=== PATIENT | male | born 1990 | race Caucasian/White ===

== ENCOUNTER 2020-08-27 09:59 | Emergency (ER) | payer OTHER ==
[2020-08-27] MEDS ORDERED: IPRATROPIUM/ALBUTEROL 0.5-2.5 MG/3 ML AMPUL NEB ONE (10:13)
[2020-08-27] MEDS ORDERED: NORMAL SALINE 1000 ML 1,000 ML IV ONE (10:14)
--- NOTE | 2020-08-27 10:16 | ER Document Report ---
ED Medical Screen (RME) - General Chief Complaint: Cough Stated Complaint: COUGH Time Seen by Provider: 08/27/20 10:09 - HPI Notes: 08/27/20 10:14 30-year-old male presents to the emergency room today for evaluation of a cough that is getting progressively worse for the last week. Reports he was diagnosed with Covid a week ago, has tried [id number] Tylenol and ibuprofen for his fevers without for relief. Reports he does have chest pains with coughing, denies any shortness of breath, nausea, vomiting, diarrhea. Denies any history of asthma, non-smoker. Denies having a medical history. Does not have a primary care provider. I have greeted and performed a rapid initial assessment of this patient. A comprehensive ED assessment and evaluation of the patient, analysis of test results and completion of the medical decision making process will be conducted by additional ED providers. PHYSICAL EXAMINATION: GENERAL: Well-appearing, well-nourished and in no acute distress. HEAD: Atraumatic, normocephalic. EYES: Pupils equal round extraocular movements intact, conjunctiva are normal. NECK: Normal range of motion CV: s1, s2 tachycardia LUNGS: diminished breath sounds The patient was evaluated during a global COVID-19 pandemic and that diagnosis was suspected/considered upon their initial presentation. Their evaluation, treatment and testing was consistent with current guidelines for patients who present with complaints or symptoms and may be related to COVID-19. - Related Data Allergies/Adverse Reactions: No Known Allergies Allergy (Unverified 08/27/20 10:08) Past Medical History - Social History Chew tobacco use (# tins/day): No Frequency of alcohol use: None Drug Abuse: None Physical Exam - Vital signs Vitals: Temp Pulse Resp BP Pulse Ox 99.1 F 131 H 20 131/92 H 97 08/27/20 10:03 08/27/20 10:03 08/27/20 10:03 08/27/20 10:03 08/27/20 10:03 Course - Vital Signs Vital signs: Temp Pulse Resp BP Pulse Ox 99.1 F 131 H 20 131/92 H 97 08/27/20 10:03 08/27/20 10:03 08/27/20 10:03 08/27/20 10:03 08/27/20 10:03
--- NOTE | 2020-08-27 10:42 | RADIOLOGY REPORT (SQ) ---
EXAM DESCRIPTION: CHEST SINGLE VIEW IMAGES COMPLETED DATE/TIME: 08/27/2020 10:31 am REASON FOR STUDY: cough, fever +covid x1 week COMPARISON: None. EXAM PARAMETERS: NUMBER OF VIEWS: One view. TECHNIQUE: Single frontal radiographic view of the chest acquired. RADIATION DOSE: NA LIMITATIONS: None. FINDINGS: LUNGS AND PLEURA: Patchy vague ground-glass opacities in the mid-lower lung zones, slight ly more so on the right. Clinical imaging features may be consistent with the patient's known histor y of COVID. No pneumothorax or pleural effusion. MEDIASTINUM AND HILAR STRUCTURES: No masses. Contour normal. HEART AND VASCULAR STRUCTURES: Heart normal in size. Normal vasculature. BONES: No acute findings. HARDWARE: None in the chest. OTHER: No other significant finding. IMPRESSION: 1. Patchy vague ground-glass opacities in the mid-lower lung zones, slightly more so ri ght. These findings may be consistent with the patient's known history of COVID. TECHNICAL DOCUMENTATION: JOB ID: [id number] [employer]- All Rights Reserved Reading location - IP/workstation name: [email or web address]
[2020-08-27 11:08] LABS: ABSOLUTE LYMPHOCYTES (AUTO) 1.5 10^3/uL (0.5-4.7); ABSOLUTE MONOCYTES (AUTO) 0.7 10^3/uL (0.1-1.4); ABSOLUTE NEUT (AUTO) 4.7 10^3/uL (1.7-8.2); BASOPHILS % (AUTO) 0.5 % (0-2); EOSINOPHILS % (AUTO) 0.2 % (0-6); HEMATOCRIT 48.4 % (37.9-51.0); HEMOGLOBIN 16.8 g/dL (13.5-17.0); LYMPHOCYTES % (AUTO) 21.2 % (13-45); MEAN CORPUSCULAR HGB CONC 34.6 g/dL (32.0-36.0); MEAN CORPUSCULAR VOLUME 81 fl (80-97); MONOCYTES % (AUTO) 10.2 % (3-13); PLATELET COUNT 237 10^3/uL (150-450); RED CELL DISTRIBUTION WIDTH 13.9 % (11.5-14.0); SEGMENTED NEUTROPHILS % (AUTO) 67.9 % (42-78); TOTAL CELLS COUNTED % (AUTO) 100 %; WHITE BLOOD COUNT 6.9 10^3/uL (4.0-10.5)
[2020-08-27 11:09] LABS: FIBRINOGEN 684 mg/dL (209-497)
[2020-08-27 11:23] LABS: D-DIMER < 0.27 ug/mL (0.00-0.50)
[2020-08-27 11:28] LABS: ALBUMIN 4.6 g/dL (3.5-5.0); ALKALINE PHOSPHATASE 46 U/L (38-126); ANION GAP 8 (5-19); ASPARTATE AMINO TRANSFERASE 60 U/L (17-59); BILIRUBIN,DIRECT 0.2 mg/dL (0.0-0.4); BILIRUBIN,TOTAL 0.6 mg/dL (0.2-1.3); BLOOD UREA NITROGEN 12 mg/dL (7-20); CALCIUM 9.7 mg/dL (8.4-10.2); CARBON DIOXIDE 28 mmol/L (22-30); CHLORIDE 104 mmol/L (98-107); GLUCOSE 74 mg/dL (75-110); POTASSIUM 4.1 mmol/L (3.6-5.0); TOTAL PROTEIN 7.5 g/dL (6.3-8.2)
--- NOTE | 2020-08-27 12:37 | ER Document Report ---
ED General - General Chief Complaint: Cough Stated Complaint: COUGH Time Seen by Provider: 08/27/20 10:09 Mode of Arrival: Ambulatory Information source: Patient - HPI Notes: Patient presents with new cough and body aches. He states he is not significantly short of breath. He did just recently test positive on 20 August 2020 for Covid virus infection. He states no significant problems with diarrhea or vomiting. He has some mild shortness of breath with exertion but he states at rest he has no shortness of breath. He has had some subjective fevers as well. He denies any significant pain. - Related Data Allergies/Adverse Reactions: No Known Allergies Allergy (Verified 08/27/20 10:52) Past Medical History - General Information source: Patient - Social History Smoking Status: Never Smoker Chew tobacco use (# tins/day): No Frequency of alcohol use: None Drug Abuse: None Family History: Reviewed & Not Pertinent Review of Systems - Review of Systems Constitutional: Chills, Malaise, Weakness Cardiovascular: denies: Chest pain, Palpitations Respiratory: Cough, Short of breath - With exertion -: Yes All other systems reviewed and negative Physical Exam - Vital signs Vitals: Temp Pulse Resp BP Pulse Ox 99.1 F 131 H 20 131/92 H 97 08/27/20 10:03 08/27/20 10:03 08/27/20 10:03 08/27/20 10:03 08/27/20 10:03 Interpretation: Tachycardic - General General appearance: Appears well, Alert In distress: None - HEENT Head: Normocephalic, Atraumatic Eyes: Normal Ears: Normal - Respiratory Respiratory status: No respiratory distress Breath sounds: Normal - Cardiovascular Rhythm: Tachycardia Notes: No JVD - Abdominal Inspection: Normal Distension: No distension - Back Back: Normal. No: Scoliosis - Extremities General upper extremity: Normal inspection, Normal color, Normal ROM General lower extremity: Normal inspection, Normal color, Normal ROM, Normal weight bearing - Neurological Neuro grossly intact: Yes Cognition: Normal Orientation: AAOx4 [place]lia Coma Scale Eye Opening: Spontaneous [place] Coma Scale Verbal: Oriented [place] Coma Scale Motor: Obeys Commands [place] Coma Scale Total: 15 Speech: Normal - Psychological Associated symptoms: Normal affect, Normal mood - Skin Skin Moisture: Dry Skin Color: Normal Course - Re-evaluation Re-evalutation: 08/27/20 12:35 Patient presents with known Covid virus infection. He does have a cough and states he is not short of breath at rest. His oxygen saturations are approximate 97% on room air. He is not tachypneic. He is mildly tachycardic but this is not unexpected. His laboratories do not significantly remarkable other than some of the acute phase reactants are elevated but not to an alarming degree. The most prudent course in this pandemic for this patient seems to be a trial of outpatient symptomatic care. I have discussed this with the patient and he is comfortable with this. I did ambulate the patient in the emergency department and his oxygen saturation was 94% or greater the entire time. He did not have significant subjective shortness of breath with ambulation. X-rays consistent with possible early Covid virus infection. 08/27/20 12:37 - Vital Signs Vital signs: Temp Pulse Resp BP Pulse Ox 99.1 F 131 H 20 131/92 H 94 08/27/20 10:03 08/27/20 10:03 08/27/20 10:03 08/27/20 10:03 08/27/20 11:00 - Laboratory Results Result Diagrams: 08/27/20 10:43 08/27/20 10:43 Laboratory Results Interpreted: 08/27/20 08/27/20 08/27/20 10:43 10:43 10:43 RBC 6.00 H Fibrinogen 684 H Glucose 74 L AST 60 H ALT 109 H C-Reactive Protein 08/27/20 10:43 RBC Fibrinogen Glucose AST ALT C-Reactive Protein 31.4 H Critical Laboratory Results Reviewed: No Critical Results - Radiology Results Critical Radiology Results Reviewed: No Critical Results - EKG Interpretation by Ia EKG shows normal: Sinus rhythm Rate: Tachycardia - 124 Rhythm: NSR [place]/QRS: Left axis deviation. No: Right axis deviation Discharge - Discharge Clinical Impression: COVID-19 Condition: Stable Disposition: HOME, SELF-CARE Instructions: COVID-19 Guidance for Persons Under Investigation Additional Instructions: Please use an ylbm-tcc-[id number] multivitamin that contains zinc, vitamin C, and vitamin D. Please also try to take melatonin before bed. If you develop worsening shortness of breath or any other concerning symptoms please return the emergency department for evaluation. Please quarantine for the next 10 days. Prescriptions: Benzonatate [Tessalon Perles 100 mg Capsule] 100 mg PO Q8HP PRN #40 capsule PRN Reason: Prednisone [Deltasone 20 mg Tablet] 3 tab PO DAILY 5 Days tablet Forms: Return to Work Referrals: [facility] [Provider Group] - Follow up in 1 week
[2020-08-27 12:58] VITALS: BP 144/84
--- NOTE | 2020-08-27 19:17 | EKG REPORT ---
SEVERITY:- OTHERWISE NORMAL ECG - SINUS TACHYCARDIA LEFT AXIS DEVIATION : Confirmed by: Filomena Segovia MD 27-Aug-2020 19:16:39
== END 2020-08-27 12:58 | disposition home or self-care (01) ==
LOC: ER 09:59
DX: U07.1 COVID-19 (principal); R05 Cough; M79.10 Myalgia, unspecified site; R00.0 Tachycardia, unspecified
CPT/HCPCS: 93005; 94640; 99285; 96360; 36415; 82728; 83615; 85025; 85384; 86140; 80053; 84484; 85379; 71045; 93010; J7030